=== PATIENT | female | born 1955 | race Caucasian/White ===

== ENCOUNTER 2022-06-13 14:54 | Emergency (ER) | payer MEDICARE ==
[~2022-06-13] VITALS: Ht 167.6 cm; Wt 90.7 kg
[2022-06-13] MEDS ORDERED: KETOROLAC TROMETHAMINE 30 MG/ML VIAL IM STA (15:19)
[2022-06-13] MEDS ORDERED: CYCLOBENZAPRINE10 MG PO (17:03)
== END 2022-06-13 17:53 | disposition home or self-care (01) ==
LOC: ER 15:03
DX: M54.50 Low back pain, unspecified (principal); I12.0 Hypertensive chronic kidney disease with stage 5 chronic kidney disease or end stage renal disease; N18.6 End stage renal disease; E78.5 Hyperlipidemia, unspecified
CPT/HCPCS: 72131; 99283; J1885